=== PATIENT | male | born 1970 | race Hispanic/Latino ===

== ENCOUNTER 2022-02-10 04:11 | Inpatient (IN) | payer OTHER ==
[~2022-02-10] VITALS: Ht 175.3 cm; Wt 95.5 kg
[2022-02-10 06:30] VITALS: BP 110/69
[2022-02-10] MEDS ORDERED: UNRESOLVED CLARIFICATION ENTRY XX SCH (06:43)
[2022-02-10 07:14] LABS: HEMOGLOBIN 11.5 g/dl (13.5-17.5); MEAN CORPUSCULAR HEMOGLOBIN 28.9 pg (27.0-33.0); MEAN CORPUSCULAR HGB CONC 34.8 g/dl (32.0-36.5); MEAN CORPUSCULAR VOLUME 82.9 fl (80.0-96.0); PLATELET COUNT, AUTOMATED 111 10^3/uL (150-450); RED BLOOD COUNT 3.98 10^6/uL (4.30-6.10); WHITE BLOOD COUNT 2.7 10^3/uL (4.0-10.0)
[2022-02-10] MEDS ORDERED: DOXY100C3 PO (07:37)
[2022-02-10] MEDS ORDERED: AZIT-12 PO (07:37)
[2022-02-10] MEDS ORDERED: ASPI-1 PO (07:37)
[2022-02-10] MEDS ORDERED: AMLO10TA PO (07:37)
[2022-02-10] MEDS ORDERED: HYDR-3490 PO (07:37)
[2022-02-10] MEDS ORDERED: LISI40TA4 PO (07:37)
[2022-02-10] MEDS ORDERED: VITMTA PO (07:37)
[2022-02-10] MEDS ORDERED: HOME MED LIST COMPLETE! XX SCH (07:40)
[2022-02-10 07:46] LABS: ALBUMIN 2.4 GM/DL (3.2-5.2); BILIRUBIN,TOTAL 0.5 MG/DL (0.2-1.0); CALCIUM LEVEL 7.3 MG/DL (8.5-10.1); CREATININE FOR GFR 8.89 MG/DL (0.70-1.30); GLOMERULAR FILTRATION RATE 6.8 (>56); MAGNESIUM LEVEL 1.7 MG/DL (1.8-2.4); PHOSPHORUS LEVEL 4.6 MG/DL (2.5-4.9); POTASSIUM SERUM 4.4 MEQ/L (3.5-5.1); TOTAL PROTEIN 5.9 GM/DL (6.4-8.2)
[2022-02-10 08:00] VITALS: BP 107/64
[2022-02-10] MEDS: NS 1,000 ML IV SCH ×3 (08:05→20:07)
[2022-02-10 08:21] LABS: EOSINOPHILS 2 % (0-3); LYMPHOCYTES 10 % (16-44); MONOCYTES 17 % (0-5); NEUTROPHILS 69 % (28-66); PLATELET ESTIMATE DECREASED (NORMAL)
[2022-02-10 08:22] LABS: ANISOCYTOSIS 1+; OVALOCYTES 1+; TEAR DROP CELLS 2+
[2022-02-10] MEDS ORDERED: ENOXAPARIN 30MG/0.3ML SYRINGE (J1650 PER 10MG) SC SCH (09:00)
[2022-02-10] MEDS: ASPIRIN 325 MG TAB PO SCH (09:56)
[2022-02-10] MEDS: PIPERACILLIN/TAZOBACTAM SOD 2.25 GM in D5W MINI-BAG PLUS 50 ML IV SCH ×3 (09:56→20:07)
[2022-02-10] MEDS: TAMSULOSIN 0.4 MG CAP PO SCH (09:56)
[2022-02-10] MEDS: MULTIVITAMINS/MINERALS THERAP 1 TAB PO SCH (09:56)
[2022-02-10] MEDS: ACETAMINOPHEN TAB 650MG DOSE (2X325MG) PO PRN ×3 (09:59→23:53)
[2022-02-10] MEDS ORDERED: MAG SULF 1GM/100ML (MAG RUN) 1 GM in IV 1 EA IV ONE (10:00)
[2022-02-10 12:00] VITALS: BP_SYST 109; BP_SYST 98; BP_DIAS 65; BP_DIAS 72
[2022-02-10] MEDS ORDERED: NS 1,000 ML IV ONE (12:00)
[2022-02-10 12:33] LABS: CREATININE,RANDOM URINE 41.5 MG/DL
[2022-02-10 13:55] LABS: CALCIUM LEVEL 7.6 MG/DL (8.5-10.1); CREATININE FOR GFR 8.34 MG/DL (0.70-1.30); GLOMERULAR FILTRATION RATE 7.3 (>56); MAGNESIUM LEVEL 2.2 MG/DL (1.8-2.4); PHOSPHORUS LEVEL 3.2 MG/DL (2.5-4.9); POTASSIUM SERUM 4.7 MEQ/L (3.5-5.1)
[2022-02-10 16:00] VITALS: BP 104/64
[2022-02-10 18:10] LABS: MRSA PCR SCREEN NOT DETECTED (NEGATIVE)
[2022-02-10 18:28] LABS: GC DNA AMPLIFICATION NEGATIVE (NEGATIVE)
[2022-02-10 20:00] VITALS: BP 107/59
[2022-02-10 20:30] LABS: CALCIUM LEVEL 7.2 MG/DL (8.5-10.1); CREATININE FOR GFR 7.78 MG/DL (0.70-1.30); GLOMERULAR FILTRATION RATE 7.9 (>56); PHOSPHORUS LEVEL 2.7 MG/DL (2.5-4.9); POTASSIUM SERUM 3.8 MEQ/L (3.5-5.1)
[2022-02-11] VITALS: BP 121/73
[2022-02-11 02:44] LABS: CALCIUM LEVEL 7.7 MG/DL (8.5-10.1); CREATININE FOR GFR 7.2 MG/DL (0.70-1.30); GLOMERULAR FILTRATION RATE 8.6 (>56); MAGNESIUM LEVEL 2.1 MG/DL (1.8-2.4); PHOSPHORUS LEVEL 3.2 MG/DL (2.5-4.9); POTASSIUM SERUM 3.9 MEQ/L (3.5-5.1)
[2022-02-11] MEDS: PIPERACILLIN/TAZOBACTAM SOD 2.25 GM in D5W MINI-BAG PLUS 50 ML IV SCH ×4 (03:39→21:25)
[2022-02-11] MEDS: NS 1,000 ML IV SCH ×3 (03:39→18:12)
[2022-02-11 04:00] VITALS: BP 120/72
[2022-02-11 05:22] LABS: HEMATOCRIT 34.6 % (42.0-52.0); MEAN CORPUSCULAR HEMOGLOBIN 27.9 pg (27.0-33.0); MEAN CORPUSCULAR HGB CONC 34.7 g/dl (32.0-36.5); MEAN CORPUSCULAR VOLUME 80.5 fl (80.0-96.0); PLATELET COUNT, AUTOMATED 105 10^3/uL (150-450); WHITE BLOOD COUNT 3.1 10^3/uL (4.0-10.0)
[2022-02-11 05:45] LABS: TOTAL PROTEIN 6.1 GM/DL (6.4-8.2)
[2022-02-11 05:47] LABS: ANISOCYTOSIS 1+; EOSINOPHILS 1 % (0-3); LYMPHOCYTES 8 % (16-44); MONOCYTES 16 % (0-5); NEUTROPHILS 74 % (28-66); PLATELET ESTIMATE DECREASED (NORMAL)
[2022-02-11 05:48] LABS: OVALOCYTES 1+; TEAR DROP CELLS 1+
[2022-02-11 06:01] LABS: ALBUMIN 2.2 GM/DL (3.2-5.2); BILIRUBIN,TOTAL 0.8 MG/DL (0.2-1.0); C REACTIVE PROTEIN QUANTITATIV 30.9 MG/DL (0.00-0.30); CALCIUM LEVEL 8.1 MG/DL (8.5-10.1); CREATININE FOR GFR 6.92 MG/DL (0.70-1.30); MAGNESIUM LEVEL 2.3 MG/DL (1.8-2.4); POTASSIUM SERUM 3.6 MEQ/L (3.5-5.1); TOTAL PROTEIN 6.8 GM/DL (6.4-8.2)
[2022-02-11 06:07] LABS: ERYTHROCYTE SEDIMENTATION RATE 63 mm/hr (0-20)
[2022-02-11] MEDS: ACETAMINOPHEN TAB 650MG DOSE (2X325MG) PO PRN ×2 (06:40→18:11)
[2022-02-11 07:31] VITALS: BP 159/88
[2022-02-11] MEDS: ASPIRIN 325 MG TAB PO SCH (08:21)
[2022-02-11] MEDS: MULTIVITAMINS/MINERALS THERAP 1 TAB PO SCH (08:21)
[2022-02-11] MEDS: HEPARIN SOD (PORCINE) 5000UNITS/ML 1ML VIAL/SYRINGE SQ SCH ×2 (08:21→21:25)
[2022-02-11] MEDS: TAMSULOSIN 0.4 MG CAP PO SCH (08:21)
[2022-02-11 09:24] LABS: HIV 1&2 SCREEN CENTAUR NEGATIVE (NEGATIVE)
[2022-02-11 11:43] VITALS: BP 108/69
[2022-02-11 12:03] LABS: CALCIUM LEVEL 7.1 MG/DL (8.5-10.1); CREATININE FOR GFR 6.73 MG/DL (0.70-1.30); GLOMERULAR FILTRATION RATE 9.3 (>56); MAGNESIUM LEVEL 1.9 MG/DL (1.8-2.4); PHOSPHORUS LEVEL 3.1 MG/DL (2.5-4.9); POTASSIUM SERUM 3.9 MEQ/L (3.5-5.1)
[2022-02-11 12:24] LABS: ALBUMIN % 46.4 % (55.8-66.1); ALPHA-1-GLOBULIN % 10.4 % (2.9-4.9); ALPHA-1-GLOBULINS 0.63 GM/DL (0.17-0.41); ALPHA-2-GLOBULINS 0.95 GM/DL (0.42-0.99); ALPHA-2-GLOBULINS % 15.6 % (7.1-11.8); BETA-1-GLOBULINS 0.29 GM/DL (0.28-0.60); BETA-1-GLOBULINS % 4.7 % (4.7-7.2); BETA-2-GLOBULINS 0.36 GM/DL (0.19-0.55); BETA-2-GLOBULINS % 5.9 % (3.2-6.5); GAMMA GLOBULINS 1.04 GM/DL (0.65-1.58)
[2022-02-11 12:31] LABS: IMMUNOTYPING SERUM IGG ABNORMAL (NORMAL); IMMUNOTYPING SERUM LAMBDA ABNORMAL (NORMAL)
[2022-02-11 15:52] VITALS: BP 114/78
[2022-02-11 17:27] LABS: CALCIUM LEVEL 7.8 MG/DL (8.5-10.1); CREATININE FOR GFR 6.37 MG/DL (0.70-1.30); GLOMERULAR FILTRATION RATE 9.9 (>56); MAGNESIUM LEVEL 2.3 MG/DL (1.8-2.4); PHOSPHORUS LEVEL 3.6 MG/DL (2.5-4.9); POTASSIUM SERUM 3.9 MEQ/L (3.5-5.1)
[2022-02-11 20:00] VITALS: BP 120/79
[2022-02-11 23:50] LABS: CALCIUM LEVEL 7.9 MG/DL (8.5-10.1); CREATININE FOR GFR 5.76 MG/DL (0.70-1.30); GLOMERULAR FILTRATION RATE 11.2 (>56); MAGNESIUM LEVEL 2.3 MG/DL (1.8-2.4); PHOSPHORUS LEVEL 3.6 MG/DL (2.5-4.9); POTASSIUM SERUM 3.8 MEQ/L (3.5-5.1)
[2022-02-12] VITALS: BP 134/83
[2022-02-12] MEDS: NS 1,000 ML IV SCH (01:38)
[2022-02-12] MEDS: PIPERACILLIN/TAZOBACTAM SOD 2.25 GM in D5W MINI-BAG PLUS 50 ML IV SCH ×4 (03:29→21:26)
[2022-02-12 04:00] VITALS: BP 135/79
[2022-02-12 04:30] LABS: HEMATOCRIT 32.9 % (42.0-52.0); HEMOGLOBIN 11.3 g/dl (13.5-17.5); MEAN CORPUSCULAR HEMOGLOBIN 27.3 pg (27.0-33.0); MEAN CORPUSCULAR HGB CONC 34.3 g/dl (32.0-36.5); MEAN CORPUSCULAR VOLUME 79.5 fl (80.0-96.0); PLATELET COUNT, AUTOMATED 121 10^3/uL (150-450); RED BLOOD COUNT 4.14 10^6/uL (4.30-6.10); WHITE BLOOD COUNT 4.2 10^3/uL (4.0-10.0)
[2022-02-12 04:47] LABS: ALBUMIN 2.1 GM/DL (3.2-5.2); BILIRUBIN,TOTAL 0.7 MG/DL (0.2-1.0); CALCIUM LEVEL 7.4 MG/DL (8.5-10.1); CREATININE FOR GFR 5.43 MG/DL (0.70-1.30); GLOMERULAR FILTRATION RATE 11.9 (>56); MAGNESIUM LEVEL 1.9 MG/DL (1.8-2.4); POTASSIUM SERUM 3.6 MEQ/L (3.5-5.1); TOTAL PROTEIN 5.6 GM/DL (6.4-8.2)
[2022-02-12 04:56] LABS: ANISOCYTOSIS 1+; ATYPICAL LYMPH 1 % (0-5); LYMPHOCYTES 12 % (16-44); MICROCYTOSIS 1+; MONOCYTES 19 % (0-5); NEUTROPHILS 67 % (28-66); OVALOCYTES 1+; PLATELET ESTIMATE DECREASED (NORMAL)
[2022-02-12 04:57] LABS: TEAR DROP CELLS 1+
[2022-02-12] MEDS: ACETAMINOPHEN TAB 650MG DOSE (2X325MG) PO PRN ×4 (05:09→23:29)
[2022-02-12 08:20] VITALS: BP 120/73
[2022-02-12] MEDS ORDERED: LACTOBACILLUS ACIDOPHILUS CAP (BACID) PO SCH (09:00)
[2022-02-12] MEDS: TAMSULOSIN 0.4 MG CAP PO SCH (10:00)
[2022-02-12] MEDS: MULTIVITAMINS/MINERALS THERAP 1 TAB PO SCH (10:00)
[2022-02-12] MEDS: ASPIRIN 325 MG TAB PO SCH (10:00)
[2022-02-12] MEDS: HEPARIN SOD (PORCINE) 5000UNITS/ML 1ML VIAL/SYRINGE SQ SCH ×2 (10:01→21:26)
[2022-02-12 16:33] VITALS: BP 135/81
[2022-02-12 17:23] VITALS: BP 139/92
[2022-02-12 21:09] VITALS: BP 133/87
[2022-02-12] MEDS ORDERED: LOPERAMIDE 2 MG CAPLET PO ONE (23:15)
[2022-02-12] MEDS ORDERED: PINK BISMUTH SUSP 524MG/30ML ORAL SYRINGE PO PRN (23:15)
[2022-02-13] MEDS: PIPERACILLIN/TAZOBACTAM SOD 2.25 GM in D5W MINI-BAG PLUS 50 ML IV SCH ×2 (04:11→09:14)
[2022-02-13 06:00] VITALS: BP 132/86
[2022-02-13 06:42] LABS: HEMATOCRIT 36.3 % (42.0-52.0); HEMOGLOBIN 12.2 g/dl (13.5-17.5); MEAN CORPUSCULAR HGB CONC 33.6 g/dl (32.0-36.5); MEAN CORPUSCULAR VOLUME 83.3 fl (80.0-96.0); PLATELET COUNT, AUTOMATED 163 10^3/uL (150-450); RED BLOOD COUNT 4.36 10^6/uL (4.30-6.10); WHITE BLOOD COUNT 4.6 10^3/uL (4.0-10.0)
[2022-02-13 08:02] LABS: ATYPICAL LYMPH 4 % (0-5); EOSINOPHILS 3 % (0-3); LYMPHOCYTES 8 % (16-44); MONOCYTES 10 % (0-5); NEUTROPHILS 69 % (28-66)
[2022-02-13 08:04] LABS: OVALOCYTES 3+; PLATELET ESTIMATE NORMAL (NORMAL)
[2022-02-13 08:05] LABS: MICROCYTOSIS 1+
[2022-02-13 08:08] LABS: ALBUMIN 2.2 GM/DL (3.2-5.2); BILIRUBIN,TOTAL 0.6 MG/DL (0.2-1.0); CALCIUM LEVEL 8.5 MG/DL (8.5-10.1); CREATININE FOR GFR 4.07 MG/DL (0.70-1.30); GLOMERULAR FILTRATION RATE 16.7 (>56); MAGNESIUM LEVEL 1.9 MG/DL (1.8-2.4)
[2022-02-13] MEDS: HEPARIN SOD (PORCINE) 5000UNITS/ML 1ML VIAL/SYRINGE SQ SCH ×2 (09:14→21:00)
[2022-02-13] MEDS: ASPIRIN 325 MG TAB PO SCH (09:14)
[2022-02-13] MEDS: LACTOBACILLUS ACIDOPHILUS CAP (BACID) PO SCH ×2 (09:15→21:00)
[2022-02-13] MEDS: MULTIVITAMINS/MINERALS THERAP 1 TAB PO SCH (09:15)
[2022-02-13] MEDS: TAMSULOSIN 0.4 MG CAP PO SCH (09:15)
[2022-02-13] MEDS ORDERED: ERTAPENEM SODIUM 0.5 GM in NS 50 ML IV SCH (09:40)
[2022-02-13 14:00] VITALS: BP 129/86
[2022-02-13] MEDS ORDERED: ERTAPENEM SODIUM 500 MG in NS 50 ML IV SCH (15:00)
[2022-02-13] MEDS: ACETAMINOPHEN TAB 650MG DOSE (2X325MG) PO PRN (21:00)
[2022-02-13 21:31] VITALS: BP 136/90
[2022-02-14 06:00] VITALS: BP 139/80
[2022-02-14 06:34] LABS: BASO # 0.1 10^3/uL (0.0-0.2); EOS # 0.1 10^3/uL (0.0-0.5); EOS % 2.6 % (0.0-3.0); HEMATOCRIT 33.9 % (42.0-52.0); HEMOGLOBIN 11.4 g/dl (13.5-17.5); LYMPH # 0.8 10^3/uL (1.5-5.0); MEAN CORPUSCULAR HEMOGLOBIN 28.1 pg (27.0-33.0); MEAN CORPUSCULAR HGB CONC 33.6 g/dl (32.0-36.5); MEAN CORPUSCULAR VOLUME 83.5 fl (80.0-96.0); MONO # 0.7 10^3/uL (0.0-0.8); NEUTROPHILS # 3.4 10^3/uL (1.5-8.5); NEUTROPHILS % 67.4 % (36.0-66.0); PLATELET COUNT, AUTOMATED 216 10^3/uL (150-450); RED BLOOD COUNT 4.06 10^6/uL (4.30-6.10); WHITE BLOOD COUNT 5.1 10^3/uL (4.0-10.0)
[2022-02-14 06:59] LABS: ALBUMIN 2.1 GM/DL (3.2-5.2); ALT/SGPT 91 U/L (12-78); BILIRUBIN,TOTAL 0.4 MG/DL (0.2-1.0); BLOOD UREA NITROGEN 47 MG/DL (7-18); CALCIUM LEVEL 8.6 MG/DL (8.5-10.1); CARBON DIOXIDE LEVEL 25 MEQ/L (21-32); CHLORIDE LEVEL 111 MEQ/L (98-107); CREATININE FOR GFR 3.18 MG/DL (0.70-1.30); GLOMERULAR FILTRATION RATE 22.2 (>56); GLUCOSE, FASTING 106 MG/DL (70-100); MAGNESIUM LEVEL 1.8 MG/DL (1.8-2.4); SODIUM LEVEL 145 MEQ/L (136-145)
[2022-02-14] MEDS: TAMSULOSIN 0.4 MG CAP PO SCH (08:20)
[2022-02-14] MEDS: ASPIRIN 325 MG TAB PO SCH (08:20)
[2022-02-14] MEDS: MULTIVITAMINS/MINERALS THERAP 1 TAB PO SCH (08:20)
[2022-02-14] MEDS: LACTOBACILLUS ACIDOPHILUS CAP (BACID) PO SCH ×2 (08:20→19:59)
[2022-02-14] MEDS: HEPARIN SOD (PORCINE) 5000UNITS/ML 1ML VIAL/SYRINGE SQ SCH ×2 (08:20→19:59)
[2022-02-14] MEDS: ACETAMINOPHEN TAB 650MG DOSE (2X325MG) PO PRN ×2 (08:21→19:58)
[2022-02-14] MEDS ORDERED: ERTAPENEM SODIUM 1 GM in NS MINI-BAG PLUS 50 ML IV SCH (10:00)
[2022-02-14] MEDS ORDERED: ONDANSETRON 4MG/2ML VIAL IV PRN (19:50)
[2022-02-15 06:00] VITALS: BP 153/93
[2022-02-15 06:24] LABS: BASO # 0.1 10^3/uL (0.0-0.2); BASO % 0.8 % (0.0-1.0); EOS # 0.1 10^3/uL (0.0-0.5); EOS % 2.2 % (0.0-3.0); HEMATOCRIT 37.3 % (42.0-52.0); HEMOGLOBIN 12.3 g/dl (13.5-17.5); LYMPH # 0.8 10^3/uL (1.5-5.0); LYMPH % 13.1 % (24.0-44.0); MEAN CORPUSCULAR HEMOGLOBIN 27.6 pg (27.0-33.0); MEAN CORPUSCULAR VOLUME 83.6 fl (80.0-96.0); MONO # 0.5 10^3/uL (0.0-0.8); MONO % 8.1 % (2.0-8.0); NEUTROPHILS # 4.8 10^3/uL (1.5-8.5); NEUTROPHILS % 74.9 % (36.0-66.0); PLATELET COUNT, AUTOMATED 278 10^3/uL (150-450); RED BLOOD COUNT 4.46 10^6/uL (4.30-6.10); WHITE BLOOD COUNT 6.4 10^3/uL (4.0-10.0)
[2022-02-15 07:02] LABS: ALBUMIN 2.6 GM/DL (3.2-5.2); BILIRUBIN,TOTAL 0.5 MG/DL (0.2-1.0); C REACTIVE PROTEIN QUANTITATIV 8.16 MG/DL (0.00-0.30); CALCIUM LEVEL 8.9 MG/DL (8.5-10.1); CREATININE FOR GFR 2.67 MG/DL (0.70-1.30); GLOMERULAR FILTRATION RATE 27.1 (>56); MAGNESIUM LEVEL 1.9 MG/DL (1.8-2.4); POTASSIUM SERUM 4.1 MEQ/L (3.5-5.1); TOTAL PROTEIN 7.3 GM/DL (6.4-8.2)
[2022-02-15] MEDS ORDERED: CIPROFLOXACIN 500MG TABLET PO SCH (07:40)
[2022-02-15] MEDS: MULTIVITAMINS/MINERALS THERAP 1 TAB PO SCH (08:30)
[2022-02-15] MEDS: LACTOBACILLUS ACIDOPHILUS CAP (BACID) PO SCH (08:30)
[2022-02-15] MEDS: ASPIRIN 325 MG TAB PO SCH (08:30)
[2022-02-15] MEDS: TAMSULOSIN 0.4 MG CAP PO SCH (08:30)
[2022-02-15] MEDS: HEPARIN SOD (PORCINE) 5000UNITS/ML 1ML VIAL/SYRINGE SQ SCH (08:31)
[2022-02-15 09:01] LABS: HEPATITIS B SURFACE ANTIGEN NEGATIVE (NEGATIVE)
[2022-02-15 09:28] LABS: HEPATITIS B CORE ANTIBODY IGM NEGATIVE (NEGATIVE); HEPATITIS C VIRUS ABY INDEX 0.1 INDEX (<0.8)
[2022-02-15 10:32] VITALS: BP 142/90
[2022-02-15] MEDS ORDERED: RISATAB3 PO (11:09)
[2022-02-15] MEDS ORDERED: CIPR-249 PO (11:09)
== END 2022-02-15 13:28 | disposition home or self-care (01) | DRG 872 ==
LOC: M PCU 06:22 → M MSPAV 02-12 17:07
PROVIDERS: ADMIT Internal Medicine; ATTEND Internal Medicine
DX: A41.9 Sepsis, unspecified organism (principal); N17.9 Acute kidney failure, unspecified; Z94.84 Stem cells transplant status; D61.818 Other pancytopenia; E87.1 Hypo-osmolality and hyponatremia; C90.00 Multiple myeloma not having achieved remission; N39.0 Urinary tract infection, site not specified; N41.0 Acute prostatitis; I12.9 Hypertensive chronic kidney disease with stage 1 through stage 4 chronic kidney disease, or unspecified chronic kidney disease; N18.30 Chronic kidney disease, stage 3 unspecified; T36.95XA Adverse effect of unspecified systemic antibiotic, initial encounter; R74.01 Elevation of levels of liver transaminase levels; B96.20 Unspecified Escherichia coli [E. coli] as the cause of diseases classified elsewhere; R19.7 Diarrhea, unspecified; D64.9 Anemia, unspecified; Z86.711 Personal history of pulmonary embolism